=== PATIENT | male | born 1980 | race Two or more races ===

== ENCOUNTER → 2017-08-07 | Emergency (ER) | payer SELFPAY ==
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
[2017-08-07 19:18] VITALS: TEMP 97.5
[2017-08-07 19:22] LABS: PLATELET COUNT 302 10^3/uL (150-400)
--- NOTE | 2017-08-07 19:28 | CPEKG ---
Heart Rate: 83 RR Interval: 723 P-R Interval: 160 QRSD Interval: 106 QT Interval: 384 QTC Interval: 452 P [place]: 28 QRS [place]: -35 T Wave [place]: 12 EKG Severity - ABNORMAL ECG - EKG Impression: SINUS RHYTHM EKG Impression: INCOMPLETE RBBB AND LAFB Electronically Signed By: Staci Sierra 07-Aug-2017 21:32:03
[2017-08-07 20:55] VITALS: PULSE 77; RESP 16
[2017-08-07 21:30] VITALS: BP 122/81; O2SAT 96
== END ==
LOC: EDBD 19:06
DX: F19.10 Other psychoactive substance abuse, uncomplicated (principal)
CPT/HCPCS: G0480